=== PATIENT | female | born 1995 | race Caucasian/White ===

== ENCOUNTER 2020-10-06 21:30 | Emergency (ER) | payer MEDICAID ==
[~2020-10-06] VITALS: Ht 165.1 cm; Wt 65.8 kg
--- NOTE | 2020-10-06 21:30 | NUR ---
[id number] FROM HOME FOR LOW MID ABD PAIN NON RADIATING, SINCE 2PM TODAYDENIES ANY URINARY SX, PT TO BED 3, AAOX4, DENIES ANY SOB/CP, NAD NOTED, VSS, PENDING ER PROVIDER PONCE
[2020-10-06] MEDS ORDERED: ONDANSETRON HCL/PF 4 MG/2 ML VIAL IVP ONE (22:30)
[2020-10-06] MEDS ORDERED: MORPHINE SULFATE INJ 2 MG/ML DISP.SYRIN IV ONE (22:30)
[2020-10-06] MEDS ORDERED: IV NS 0.9% 500 ML BAG IV ONE (22:30)
[2020-10-06] MEDS ORDERED: ONDANSETRON HCL/PF 4 MG/2 ML VIAL ONE (22:41)
[2020-10-06] MEDS ORDERED: MORPHINE SULFATE INJ 4 MG/ML DISP.SYRIN ONE (22:41)
[2020-10-06 22:50] LABS: BASOPHILS % (AUTO) 0.5 % (0.0-2.0); BILIRUBIN,URINE Negative (NEGATIVE); COLOR,URINE YELLOW (YELLOW); EOSINOPHILS % (AUTO) 0.9 % (0.0-6.0); HEMATOCRIT 32 % (33-45); HEMOGLOBIN 9.6 g/dL (11.5-14.8); LEUKOCYTE ESTERASE ,URINE Trace (NEGATIVE); LYMPHOCYTES # (AUTO) 2.7 K/uL (0.8-4.8); LYMPHOCYTES % (AUTO) 28.9 % (20.0-44.0); MEAN CORPUSCULAR HGB CONC 30 g/dl (31.0-36.0); MEAN CORPUSCULAR VOLUME 60 fL (82-100); MONOCYTES # (AUTO) 0.5 K/uL (0.1-1.30); MONOCYTES % (AUTO) 5.7 % (2.0-12.0); NITRITE, URINE Negative (NEGATIVE); PH,URINE 8.5 (5.0-8.0); PLATELET COUNT (AUTO) 373 K/uL (150-450); PROTEIN,URINE Negative (NEGATIVE); RED BLOOD CELL COUNT(AUTO) 5.29 MIL/uL (4.0-5.2); UGLUCOSE Negative (NEGATIVE); UROBILINOGEN,URINE 0.2 EU/dL (0.2); WHITE BLOOD COUNT (AUTO) 9.4 K/uL (4.3-11.0)
[2020-10-06 22:53] LABS: BACTERIA,URINE Few /HPF (None Seen); RBC,URINE 21-50 /HPF (0-2); SQUAMOUS EPITHELIAL CELL,UR Few /HPF (None Seen)
[2020-10-06 23:06] LABS: ALBUMIN 3.9 g/dL (3.4-5.0); BILIRUBIN,DIRECT 0.1 mg/dL (0.0-0.2); BILIRUBIN,TOTAL 0.4 mg/dL (0.2-1.0); CREATININE 0.7 mg/dL (0.6-1.3); POTASSIUM 3.4 mmol/L (3.5-5.1); TOTAL PROTEIN, SERUM 7.7 g/dL (6.4-8.2)
[2020-10-06 23:56] LABS: BASOPHILS % (MANUAL) 0 % (0.0-2.0); EOSINOPHILS % (MANUAL) 0 % (0-4); LYMPHOCYTES % (MANUAL) 26 % (16-48); MONOCYTES % (MANUAL) 7 % (0-11.0); NEUTROPHILS % (MANUAL) 67 (42-76)
--- NOTE | 2020-10-07 01:00 | NUR ---
Patient discharged to home in stable condition. Written and verbal after care instructions given. Patient verbalizes understanding of instruction. IV removed. Catheter intact and site benign. Pressure and 4x4 applied to site. No bleeding noted.
[2020-10-07 02:39] VITALS: BP 145/64
== END 2020-10-07 02:39 | disposition home or self-care (01) ==
LOC: ER 21:30
DX: R10.84 Generalized abdominal pain (principal); R10.13 Epigastric pain
CPT/HCPCS: 36415; 74176; 80048; 80076; 81001; 83690; 84703; 85007; 85025; 96361; 96374; 96375; 99284; J2270; J2405; J7040